=== PATIENT | male | born 1985 | race Caucasian/White ===

== ENCOUNTER 2018-01-17 12:04 | Inpatient (IN) | payer OTHER ==
[2018-01-17 13:36] VITALS: BMI 26.3
--- NOTE | 2018-01-17 15:34 | HP ---
Admission [facility] Chief Complaint: I came for rehab and stop using cocaine. Allergies/Adverse Reactions: Allergies Allergy/AdvReac Type Severity Reaction Status Date / Time No Known Allergies Allergy Verified 01/17/18 15:28 History of Present Illness: Pt is a 32yr old male with a cocaine dependence seeking rehab for treatment. This is his first time in rehab and our facility. Exam Limitations: Physical Impairment (chronic back pain) - Ebola screening Have you traveled outside of the country in the last 21 days: No Have you had contact with anyone from an Ebola affected area: No Have you been sick,other than usual withdrawal symptoms: No Do you have a fever: No - Review of Systems Constitutional: Loss of Appetite, Changes in sleep EENT: reports: Nose Congestion Respiratory: reports: No Symptoms reported Cardiac: reports: Syncope GI: reports: No Symptoms Reported : reports: No Symptoms Reported Musculoskeletal: reports: Back Pain Integumentary: reports: No Symptoms Reported Neuro: reports: No Symptoms reported Endocrine: reports: [place] Hematology: reports: No Symptoms Reported Psychiatric: reports: Judgement Intact, Mood/Affect Appropiate, Orientated x3, Agitated, Anxious Other Systems: Reviewed and Negative Patient History - Patient Medical History Hx Anemia: No Hx Asthma: No Hx Chronic Obstructive Pulmonary Disease (COPD): No Hx Cancer: No Hx Cardiac Disorders: No Hx Congestive Heart Failure: No Hx Hypertension: No Hx Hypercholesterolemia: No Hx Pacemaker: No HX Cerebrovascular Accident: No Hx Seizures: No Hx Dementia: No Hx Diabetes: No Hx Gastrointestinal Disorders: No Hx Liver Disease: No Hx Genitourinary Disorders: No Hx Sexually Transmitted Disorders: No Hx Renal Disease (ESRD): No Hx Thyroid Disease: No Hx Human Immunodeficiency Virus (HIV): No (negative) Hx Hepatitis C: No Hx Depression: Yes Hx Suicide Attempt: No Hx Bipolar Disorder: No Hx Schizophrenia: No Other Medical History: anxiety - Patient Surgical History Past Surgical History: No - PPD History Previous Implant?: Yes Documented Results: Positive w/o proof PPD to be Administered?: No - Reproductive History Patient is a Female of Child Bearing Age (11 -55 yrs old): No - Smoking Cessation Smoking history: Current every day smoker Have you smoked in the past 12 months: Yes Aproximately how many cigarettes per day: 10 Hx Chewing Tobacco Use: No Initiated information on smoking cessation: Yes 'Breaking Loose' booklet given: 01/17/18 - Substance & Tx. History Hx Alcohol Use: No Hx Substance Use: Yes Substance Use Type: Cocaine Hx Substance Use Treatment: No - Substances Abused Cocaine Route: Inhalation Frequency: Daily Amount used: 2-3 grams/daily Age of first use: 24 Date of Last Use: 01/10/18 Family Disease History - Family Disease History Family Disease History: Other: Father ( cardiac stoke.) Admission Physical Exam [facility] - Vital Signs Vital Signs: Vital Signs - 24 hr 01/17/18 13:13 Temperature 99.0 F Pulse Rate 67 Respiratory 18 Rate Blood Pressure 126/89 - Physical General Appearance: Yes: Appropriately Dressed, Irritable, Sweating, Anxious HEENTM: Yes: Normal Voice Respiratory: Yes: Lungs Clear, Normal Breath Sounds, No Respiratory Distress Neck: Yes: No masses,lesions,Nodules Breast: Yes: Within Normal Limits Cardiology: Yes: Regular Rhythm, Regular Rate, S1, S2 Abdominal: Yes: Normal Bowel Sounds Genitourinary: Yes: Within Normal Limits Back: Yes: Normal Inspection Musculoskeletal: Yes: Back pain Extremities: Yes: Normal Capillary Refill, Non-Tender, Tremors Neurological: Yes: Fully Oriented, Alert, Normal Response Integumentary: Yes: Normal Color Lymphatic: Yes: Within Normal Limits - Diagnostic (1) Chronic pain Current Visit: Yes Status: Chronic Qualifiers: Chronic pain type: chronic pain syndrome Qualified Code(s): G89.4 - Chronic pain syndrome (2) Cocaine dependence Current Visit: Yes Status: Chronic (3) Nicotine dependence Current Visit: Yes Status: Acute Qualifiers: Nicotine product type: cigarettes Substance use status: uncomplicated Qualified Code(s): F17.210 - Nicotine dependence, cigarettes, uncomplicated Cleared for Admission [facility] - Detox or Rehab [facility] Level of Care: Medically Managed Claeared for Rehab Admission: Yes [facility] Breath Alcohol Content Breath Alcohol Content: 0 Urine Drug Screen - Results Urine Drug Screen Results: THC-Marijuana, BZO-Benzodiazepines, MTD-Methadone Inpatient Rehab Admission - Initial Determination Are CD services needed?: Yes Free of communicable disease: Yes Not in need of hospitalization: Yes - Rehab Admission Criteria Comorbidities: Yes Lacks judgement: Yes
[2018-01-17] MEDS ORDERED: MAG HYDROX/AL HYDROX/SIMETH 30 ML UNIT-DOSE CUP PO PRN (15:49)
[2018-01-17] MEDS ORDERED: P-EPHED 60MG/TRIPROLIDI 2.5MG TABLET PO PRN (15:49)
[2018-01-17] MEDS ORDERED: IBUPROFEN 400 MG TABLET (FP) PO PRN (15:49)
[2018-01-17] MEDS ORDERED: MAGNESIUM HYDROX 2400MG/30ML ORAL SUSPENSION 30 ML CUP PO PRN (15:49)
[2018-01-17] MEDS ORDERED: guaiFENesin/D-METHORPHAN HB 10 ML UNIT-DOSE CUPS PO PRN (15:49)
[2018-01-17] MEDS ORDERED: ACETAMINOPHEN 325 MG TABLET (FP) PO PRN (15:49)
[2018-01-17] MEDS ORDERED: MENTHOL/PHENOL 1 EACH UD MM PRN (15:49)
[2018-01-17] MEDS ORDERED: MAGNESIUM CITRATE 300 ML BOTTLE PO PRN (15:49)
[2018-01-17] MEDS ORDERED: LOPERAMIDE HCL 2 MG CAPSULE PO PRN (15:49)
[2018-01-17] MEDS ORDERED: FLU VACCINE QUAD 60 MCG/0.5 ML (MDV 18-19) IM ONE (18:00)
[2018-01-17] MEDS: MELATONIN 5 MG TABLETS PO PRN (21:48)
[2018-01-17] MEDS: hydrOXYzine PAMOATE 50 MG CAPSULE (FP) PO PRN (21:48)
[2018-01-17] MEDS: THIAMINE HCL 100 MG TABLET (FP) PO SCH (21:48)
[2018-01-17 23:03] LABS: URINE APPEARANCE TURBID; URINE BILIRUBIN NEGATIVE (<2.0 mg/dL); URINE COLOR AMBER; URINE GLUCOSE (UA) NEGATIVE (NEGATIVE); URINE KETONE NEGATIVE (NEGATIVE); URINE LEUK ESTERASE NEGATIVE (NEGATIVE); URINE NITRITE NEGATIVE (NEGATIVE); URINE PROTEIN NEGATIVE (NEGATIVE); URINE UROBILINOGEN NEGATIVE mg/dL (0.2-1.0)
--- NOTE | 2018-01-18 06:27 | HP ---
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 Smokes 10 cigarettes daily Psychiatric History: Denies history of previous psychiatric treatment Physical/Sexual Abuse/Trauma History: Denies history of emotional, physical or sexual abuse as well as DV relationship. No service Additional Comment: Reports multiple previous misdemeanor arrests. Vital Signs: Vital Signs - 24 hr 01/17/18 01/18/18 01/18/18 13:13 00:30 03:29 Temperature 99.0 F Pulse Rate 67 Respiratory 18 16 16 Rate Blood Pressure 126/89 Allergies/Adverse Reactions: Allergies Allergy/AdvReac Type Severity Reaction Status Date / Time No Known Allergies Allergy Verified 01/17/18 16:03 Date of last physical exam: 01/17/18 Concur with the findings of this exam: Yes - Substance Abuse/Tx History Hx Alcohol Use: No Hx Substance Use: Yes Substance Use Type: Cocaine (Started using cocaine at age 24, consumes 2-3 gram daily. Last used on 01/10/18), Marijuana (Started smoking marijuana at age 16, consumes 4-5 blunts daily. Last smoked on 01/17/18) Hx Substance Use Treatment: Yes (Recent incomplete detox @ [facility]) Mental Status Exam - Mental Status Exam Alert and Oriented to: Time, Place, Person Cognitive Function: Fair Patient Appearance: Well Groomed Mood: Irritable Affect: Appropriate Speech Pattern: Clear Voice Loudness: Normal Thought Process: Intact, Goal Oriented Hallucinations: Denies Homicidal Ideation: Denies Insight/Judgement: Fair Sleep: Poorly Appetite: Poor Muscle strength/Tone: Normal Gait/Station: Other (Uses a cane as ambulatory aid) Psychiatric Findings - Problem List (Gays 1, 2,3) (1) Cocaine dependence Current Visit: Yes Status: Chronic (2) Cannabis dependence Current Visit: Yes Status: Acute (3) Nicotine dependence Current Visit: Yes Status: Chronic Qualifiers: Nicotine product type: cigarettes Substance use status: uncomplicated Qualified Code(s): F17.210 - Nicotine dependence, cigarettes, uncomplicated (4) Substance induced mood disorder Current Visit: Yes Status: Acute (5) Substance-induced sleep disorder Current Visit: Yes Status: Acute (6) Chronic pain Current Visit: Yes Status: Chronic Qualifiers: Chronic pain type: chronic pain syndrome Qualified Code(s): G89.4 - Chronic pain syndrome (7) PPD positive Current Visit: Yes Status: Chronic - Initial Treatment Plan Initial Treatment Plan: 1) Start Melatonin 5 mg po HS prn for insomnia. 2) Monitor progress
--- NOTE | 2018-01-18 09:51 | EKG ---
Test Reason : Blood Pressure : / mmHG Vent. Rate : 065 BPM Atrial Rate : 065 BPM P-R Int : 156 ms QRS Dur : 090 ms QT Int : 380 ms P-R-T Axes : 069 057 026 degrees QTc Int : 395 ms POOR DATA QUALITY, INTERPRETATION MAY BE ADVERSELY AFFECTED NORMAL SINUS RHYTHM NORMAL ECG NO PREVIOUS ECGS AVAILABLE Confirmed by JOHN MURRAY MD ([id number]) on 01/18/2018 9:51:03 AM Referred By: Confirmed By:JOHN MURRAY MD
[2018-01-18] MEDS ORDERED: PATIENT'S OWN MEDICATION (NON-FORMULARY) (Meloxicam [Meloxicam] 15 MG) PO SCH (10:30)
[2018-01-18] MEDS: NICOTINE 21 MG/24 HOURS TOPICAL PATCH TD SCH (11:00)
[2018-01-18] MEDS: PRENATAL VITAMINS W/ FOLIC ACID TABLET (FP) PO SCH (11:00)
--- NOTE | 2018-01-18 11:59 | PN ---
[facility] Progress Note Note: PT REPORTS HE HAS A HX SEVERE BACK PAIN AND ON MELOXICAM 15 MG PO DAILY. PT BROUGHT OWN MEDICATION. Vital Signs - 24 hr 01/17/18 01/18/18 01/18/18 13:13 00:30 03:29 Temperature 99.0 F Pulse Rate 67 Respiratory 18 16 16 Rate Blood Pressure 126/89 01/18/18 06:45 Temperature 97.5 F L Pulse Rate 68 Respiratory 18 Rate Blood Pressure 124/72 Laboratory Tests 01/17/18 20:57 Urine Color Loly Urine Appearance Turbid Urine pH 5.0 Ur Specific [place] 1.031 Urine Protein Negative Urine Glucose (UA) Negative Urine Ketones Negative Urine Blood Negative Urine Nitrite Negative Urine Bilirubin Negative Urine Urobilinogen Negative Ur Leukocyte Esterase Negative PLAN: CONTINUE MED DIRECTED AFTER CLEARANCE FROM PHARMACY.
[2018-01-18] MEDS: PATIENT'S OWN MEDICATION (NON-FORMULARY) (Meloxicam [Meloxicam] 15 MG) PO SCH (12:11)
[2018-01-18] MEDS ORDERED: PT OWN MED DRAWER 7, Y5N ONE (12:16)
[2018-01-18 14:44] LABS: HEMATOCRIT 43.5 % (35.4-49); HEMOGLOBIN 14.4 GM/dL (11.7-16.9); MCH 29.9 pg (25.7-33.7); MEAN CELL VOLUME 90.4 fl (80-96); MEAN PLT VOLUME 10.5 fl (7.5-11.1); PLATELET COUNT 194 K/MM3 (134-434); RBC 4.81 M/mm3 (4.00-5.60); RDW 13.2 % (11.9-15.9); WHITE BLOOD COUNT 5.4 K/mm3 (4.0-10.0)
[2018-01-18 14:48] LABS: ALK PHOS 75 U/L (45-117); ANION GAP 3 MMOL/L (8-16); BILIRUBIN,TOTAL 0.4 mg/dL (0.2-1); BLOOD UREA NITROGEN 18 mg/dL (7-18); CALCIUM 9.4 mg/dL (8.5-10.1); CHLORIDE 104 mmol/L (98-107); CO2 31 mmol/L (21-32); CREATININE 0.8 mg/dL (0.55-1.3); GLUCOSE,RANDOM 89 mg/dL (74-106); POTASSIUM 4.2 mmol/L (3.5-5.1); SGOT/AST 17 U/L (15-37); SGPT/ALT 40 U/L (13-61); SODIUM 138 mmol/L (136-145); TOT PROT 7.1 g/dl (6.4-8.2)
[2018-01-18] MEDS: MELATONIN 5 MG TABLETS PO PRN (21:28)
[2018-01-18] MEDS: THIAMINE HCL 100 MG TABLET (FP) PO SCH (21:28)
[2018-01-18] MEDS: hydrOXYzine PAMOATE 50 MG CAPSULE (FP) PO PRN (21:28)
[2018-01-18] MEDS: NICOTINE POLACRILEX 4 MG GUM BC PRN (21:29)
[2018-01-19] MEDS ORDERED: PT OWN MED DRAWER 7, Y5N ONE (08:53)
[2018-01-19] MEDS: PRENATAL VITAMINS W/ FOLIC ACID TABLET (FP) PO SCH (09:14)
[2018-01-19] MEDS: NICOTINE 21 MG/24 HOURS TOPICAL PATCH TD SCH (09:15)
[2018-01-19] MEDS: NICOTINE POLACRILEX 4 MG GUM BC PRN (09:19)
[2018-01-19] MEDS: PATIENT'S OWN MEDICATION (NON-FORMULARY) (Meloxicam [Meloxicam] 15 MG) PO SCH (09:19)
--- NOTE | 2018-01-19 12:59 | PN ---
[facility] Progress Note Note: Patient reports experiencing difficulty to sleep despite taking Melatonin 5 mg at bedtime. Discussed hypnotic effects of Belsomra with patient and he agreed to try it. Belsomra 10 mg po HS prn ordered
[2018-01-19] MEDS: hydrOXYzine PAMOATE 50 MG CAPSULE (FP) PO PRN ×3 (13:02→21:26)
[2018-01-19] MEDS: THIAMINE HCL 100 MG TABLET (FP) PO SCH (21:25)
[2018-01-19] MEDS: MELATONIN 5 MG TABLETS PO PRN (21:27)
[2018-01-19] MEDS ORDERED: SUVOREXANT 10 MG TABLET PO SCH (22:00)
[2018-01-20] MEDS ORDERED: PT OWN MED DRAWER 7, Y5N ONE (08:27)
[2018-01-20] MEDS: PATIENT'S OWN MEDICATION (NON-FORMULARY) (Meloxicam [Meloxicam] 15 MG) PO SCH (09:04)
[2018-01-20] MEDS: PRENATAL VITAMINS W/ FOLIC ACID TABLET (FP) PO SCH (09:04)
[2018-01-20] MEDS: NICOTINE 21 MG/24 HOURS TOPICAL PATCH TD SCH (09:05)
[2018-01-20] MEDS: hydrOXYzine PAMOATE 50 MG CAPSULE (FP) PO PRN ×4 (09:06→21:36)
--- NOTE | 2018-01-20 11:36 | PN ---
[facility] Progress Note Note: Patient reports difficulty to fall and stay asleep after taking Belsomra 10 mg at bedtime last night. Medication dosage will be increased to 15 mg po HS
[2018-01-20] MEDS: THIAMINE HCL 100 MG TABLET (FP) PO SCH (21:33)
[2018-01-20] MEDS: SUVOREXANT 15 MG TABLET PO PRN (21:34)
[2018-01-20] MEDS: NICOTINE POLACRILEX 4 MG GUM BC PRN (21:36)
[2018-01-21] MEDS: hydrOXYzine PAMOATE 50 MG CAPSULE (FP) PO PRN ×4 (02:55→21:39)
[2018-01-21] MEDS ORDERED: PT OWN MED DRAWER 7, Y5N ONE (08:46)
[2018-01-21] MEDS: NICOTINE 21 MG/24 HOURS TOPICAL PATCH TD SCH (09:30)
[2018-01-21] MEDS: PRENATAL VITAMINS W/ FOLIC ACID TABLET (FP) PO SCH (09:30)
[2018-01-21] MEDS: PATIENT'S OWN MEDICATION (NON-FORMULARY) (Meloxicam [Meloxicam] 15 MG) PO SCH (09:31)
[2018-01-21] MEDS: NICOTINE POLACRILEX 4 MG GUM BC PRN (14:34)
[2018-01-21] MEDS: THIAMINE HCL 100 MG TABLET (FP) PO SCH (21:38)
[2018-01-21] MEDS: SUVOREXANT 15 MG TABLET PO PRN (21:39)
[2018-01-22] MEDS: hydrOXYzine PAMOATE 50 MG CAPSULE (FP) PO PRN ×5 (06:55→22:42)
[2018-01-22] MEDS: MELOXICAM PO SCH (06:56)
[2018-01-22] MEDS: PRENATAL VITAMINS W/ FOLIC ACID TABLET (FP) PO SCH (10:21)
[2018-01-22] MEDS: NICOTINE 21 MG/24 HOURS TOPICAL PATCH TD SCH (10:21)
[2018-01-22] MEDS: NICOTINE POLACRILEX 4 MG GUM BC PRN ×3 (13:15→21:44)
[2018-01-22] MEDS: THIAMINE HCL 100 MG TABLET (FP) PO SCH (21:43)
[2018-01-22] MEDS: SUVOREXANT 15 MG TABLET PO PRN (21:45)
[2018-01-23] MEDS ORDERED: PT OWN MED DRAWER 7, Y5N ONE (03:15)
[2018-01-23] MEDS ORDERED: SUVOREXANT 15 MG TABLET PO PRN (06:10)
[2018-01-23] MEDS: MELOXICAM PO SCH (06:37)
[2018-01-23] MEDS: hydrOXYzine PAMOATE 50 MG CAPSULE (FP) PO PRN (06:38)
[2018-01-23] MEDS: NICOTINE POLACRILEX 4 MG GUM BC PRN ×2 (06:39→09:12)
[2018-01-23 07:23] VITALS: BP 134/76; PULSE 59; TEMP 97.3
[2018-01-23] MEDS ORDERED: CYCLOBENZAPRINE HCL 10 MG TABLET (FP) PO PRN (07:25)
[2018-01-23] MEDS: NICOTINE 21 MG/24 HOURS TOPICAL PATCH TD SCH (09:09)
[2018-01-23] MEDS: PRENATAL VITAMINS W/ FOLIC ACID TABLET (FP) PO SCH (09:11)
--- NOTE | 2018-01-23 14:24 | PN ---
[facility] Progress Note Note: PT SIGNED OUT AMA TODAY PER NURSE TANA'S CALL STATING PT WANTS TO FOLLOW UP WITH HIS PAIN MANAGEMENT FOR HIS BACK PAIN. PT DID NOT WAIT TO BE SEEN BY THIS PROVIDER. Vital Signs 01/23/18 07:21 Temperature 97.3 F L Pulse Rate 59 L Respiratory 18 Rate Blood Pressure 134/76 Laboratory Tests 01/17/18 01/18/18 01/18/18 20:57 09:55 09:55 WBC 5.4 RBC 4.81 Hgb 14.4 Hct 43.5 MCV 90.4 MCH 29.9 MCHC 33.0 RDW 13.2 Plt Count 194 MPV 10.5 Sodium 138 Potassium 4.2 Chloride 104 Carbon Dioxide 31 Anion Gap 3 L BUN 18 Creatinine 0.8 Creat Clearance w eGFR > 60 Random Glucose 89 Calcium 9.4 Total Bilirubin 0.4 AST 17 ALT 40 Alkaline Phosphatase 75 Total Protein 7.1 Albumin 4.0 Urine Color Loly Urine Appearance Turbid Urine pH 5.0 Ur Specific [place] 1.031 Urine Protein Negative Urine Glucose (UA) Negative Urine Ketones Negative Urine Blood Negative Urine Nitrite Negative Urine Bilirubin Negative Urine Urobilinogen Negative Ur Leukocyte Esterase Negative RPR Titer 01/18/18 09:55 WBC RBC Hgb Hct MCV MCH MCHC RDW Plt Count MPV Sodium Potassium Chloride Carbon Dioxide Anion Gap BUN Creatinine Creat Clearance w eGFR Random Glucose Calcium Total Bilirubin AST ALT Alkaline Phosphatase Total Protein Albumin Urine Color Urine Appearance Urine pH Ur Specific [place] Urine Protein Urine Glucose (UA) Urine Ketones Urine Blood Urine Nitrite Urine Bilirubin Urine Urobilinogen Ur Leukocyte Esterase RPR Titer Nonreactive PLAN:F/U WITH PMD/PAIN MANAGEMENT INDICATED.
[2018-01-23] MEDS ORDERED: SUVOREXANT 10 MG TABLET PO PRN (22:00)
== END 2018-01-23 11:38 | disposition left against medical advice (07) | DRG 770 ==
LOC: YASAS 12:04 → Y3W 17:28
PROVIDERS: ADMIT Psychiatry & Neurology Psychiatry; ATTEND Psychiatry & Neurology Psychiatry
PROC: HZ42ZZZ Group Counseling for Substance Abuse Treatment, Cognitive-Behavioral (ICD-10-PCS; principal; 2018-01-17)
DX: F14.20 Cocaine dependence, uncomplicated (principal); F12.20 Cannabis dependence, uncomplicated; F17.210 Nicotine dependence, cigarettes, uncomplicated; F19.24 Other psychoactive substance dependence with psychoactive substance-induced mood disorder; F19.282 Other psychoactive substance dependence with psychoactive substance-induced sleep disorder; M54.5 Low back pain; G89.4 Chronic pain syndrome; R76.11 Nonspecific reaction to tuberculin skin test without active tuberculosis
CPT/HCPCS: 36415; 71046-TC-FY; 80053; 81003; 85027; 86593; 93005; 93010